=== PATIENT | male | born 2000 | race Caucasian/White ===

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

== ENCOUNTER → 2022-03-16 | Outpatient (CLI) | payer MEDICARE, MEDICAID | LOC: RAD 11:37 | DX: S61.212A Laceration without foreign body of right middle finger without damage to nail, initial encounter (principal); X58.XXXA Exposure to other specified factors, initial encounter ==

== ENCOUNTER → 2022-04-19 | Outpatient (CLI) | payer MEDICARE, MEDICAID ==
[2022-04-19 18:00] LABS: BASO # 0.07 K/mm3 (0.02-0.10); EOS # 0.08 K/mm3 (0.04-0.40); EOS % 1.5 % (0.0-4.0); HEMOGLOBIN 17.4 g/dL (13.5-18.0); LYMPH# 1.84 K/mm3 (1.50-4.00); MEAN CELL VOLUME 95 fl (78-100); MEAN CORPUSCULAR HEMOGLOBIN 33 pg (27-31); MEAN CORPUSCULAR HGB CONC 35 g/dL (33-37); MEAN PLATELET VOLUME 9.1 fl (7.4-10.4); NEU # 2.81 K/mm3 (1.40-6.50); PLATELET COUNT 227 K/mm3 (130-400); RED BLOOD COUNT 5.29 M/mm3 (4.20-5.60); RED CELL DISTRIBUTION WIDTH 13.5 % (11.5-14.5); WHITE BLOOD COUNT 5.2 K/mm3 (4.8-10.8)
[2022-04-19 18:11] LABS: ALBUMIN 4.3 g/dL (3.5-5.0)
[2022-04-19 18:13] LABS: CALCIUM 9.4 mg/dL (8.3-10.5)
[2022-04-19 18:14] LABS: TOTAL PROTEIN 7.6 g/dL (6.4-8.3)
[2022-04-19 18:16] LABS: TOTAL BILIRUBIN 0.6 mg/dL (0.2-1.2)
[2022-04-21 05:10] LABS: LEVETIRACETAM (KEPPRA) 16 ug/mL (5-45)
== END ==
LOC: LAB 17:32
PROVIDERS: Nurse Practitioner
DX: Z79.899 Other long term (current) drug therapy (principal)

== ENCOUNTER → 2022-09-15 | Outpatient (CLI) | payer MEDICARE, MEDICAID | LOC: LAB 12:46 | DX: E03.9 Hypothyroidism, unspecified (principal) ==